=== PATIENT | female | born 1945 | race Caucasian/White ===

== ENCOUNTER 2021-05-17 12:10 | Outpatient (CLI) | payer MEDICARE, SELFPAY ==
--- NOTE | ~2021-05-17 | US_ITS ---
EXAMINATION: US thyroid DATE: 05/17/2021 12:51 INDICATION: Thyroid nodule. TECHNIQUE: Multiple ultrasound images of the thyroid were obtained. COMPARISON: Chest CT 04/10/2018 FINDINGS: The right thyroid lobe measures 3.2 x 0.8 x 1.3 cm. The left thyroid lobe measures 2.7 x 0.7 x 0.8 c m. In the right thyroid lobe, there is a 7 mm solid, isoechoic, [id number]-grag nodule with ill-defi parrish margin without echogenic foci (TI-RADS TR3). In the right thyroid lobe, there is a 5 mm solid, is oechoic, golxc-[id number] nodule with ill-defined margin and punctate echogenic foci (TR4). IMPRESSION: 1. Small thyroid nodules, likely not clinically significant. No follow-up is needed. Reviewed, dictated and finalized at location A. IMPRESSION: 1. Small thyroid nodules, likely not clinically significant. No follow-up is ne eded.
== END 2021-05-17 12:11 | disposition home or self-care (01) ==
LOC: CHSIMG 12:16
PROVIDERS: PCP Internal Medicine; Visit Provider Internal Medicine
DX: E04.1 Nontoxic single thyroid nodule (principal)
CPT/HCPCS: 76536